=== PATIENT | male | born 1995 | race Caucasian/White ===

== ENCOUNTER 2018-12-20 10:21 | Emergency (ER) | payer OTHER ==
[~2018-12-20] VITALS: Ht 177.8 cm; Wt 72.7 kg
[2018-12-20 11:28] VITALS: BP 108/58
--- NOTE | 2018-12-20 11:28 | REP ---
RIGHT LONG FINGER SERIES: Four views. HISTORY: Right 3rd finger x-ray, pain in the PIP joint. FINDINGS: There is soft-tissue swelling about the PIP joint of the long finger. No fracture or subluxation is seen. No opaque foreign body is noted. The soft tissue swelling is most pronounced dorsally. IMPRESSION: Soft-tissue swelling at the PIP joint. No bony abnormality. Electronically Signed by Volodymyr Catalan MD 12/20/2018 01:37 P
== END 2018-12-20 11:44 | disposition home or self-care (01) ==
LOC: M ED 10:21
DX: S63.632A Sprain of interphalangeal joint of right middle finger, initial encounter (principal); W23.0XXA Caught, crushed, jammed, or pinched between moving objects, initial encounter; Y92.89 Other specified places as the place of occurrence of the external cause; Y93.9 Activity, unspecified; Y99.0 Civilian activity done for income or pay